=== PATIENT | female | born 1955 | race American Indian/Alaskan Native ===

== ENCOUNTER 2019-02-03 18:32 | Emergency (ER) | payer OTHER ==
--- NOTE | 2019-02-03 18:51 | Emergency Department Report ---
Blank Doc - Documentation Documentation: This is a 63-year-old female that presents with chest pain, sob, and dizziness with bilateral leg swelling. This initial assessment/diagnostic orders/clinical plan/treatment(s) is/are subject to change based on patient's health status, clinical progression and re- assessment by fellow clinical providers in the ED. Further treatment and workup at subsequent clinical providers discretion. Patient/guardians urged not to elope from the ED as their condition may be serious if not clinically assessed and managed. Initial orders include: 1- Patient sent to [facility] for further evaluation and treatment 2- cxr 3- EKG 4- labs
[2019-02-03 19:22] LABS: Hematocrit 43.6 % (30.3-42.9); Hemoglobin 14.1 gm/dl (10.1-14.3); Mean Corpuscular HGB Conc 32 % (30-34); Mean Corpuscular Volume 72 fl (79-97); Platelet Count 231 K/mm3 (140-440); Red Blood Count 6.07 M/mm3 (3.65-5.03); Red Cell Distribution Width 17.6 % (13.2-15.2)
[2019-02-03 19:34] LABS: INR 2.12 (0.87-1.13)
[2019-02-03 19:36] LABS: Partial Thromboplastin Time 40.7 Sec. (24.2-36.6)
[2019-02-03 19:46] LABS: Calcium 9.7 mg/dL (8.4-10.2)
--- NOTE | 2019-02-03 20:06 | Emergency Department Report ---
ED Neuro Deficit HPI - General Chief Complaint: Chest Pain Stated Complaint: CHEST PAIN/SOB Time Seen by Provider: 02/03/19 18:49 Source: patient Mode of arrival: Ambulatory Limitations: No Limitations - History of Present Illness Initial Comments: Mrs. Davalos is a 63 yo female with hx of diabetes mellitus, atrial fibrillation, heart failure on milrinone infusion pump who presents with confusion and unsteady gait. She has been ill for the past day. She has had global headache. Sudden onset of confusion approximately 4 pm today while at [facility] [employer]. She is followed by Dr. Galarza [employer] . Her integrity specialist Dr. Wolf. Mrs. Davalos is unable to give history. She is not able to remember events or names. Her two daughters provided history. Grand- daughter brought her to ED via private auto. Medications: Amiodarone 400 mg once a day Eliquis 5 mg BID Digoxin 125 mcg Insulin Glargine 20 units Insulin Lispro 6 units Metoprolol XL 50 mg daily Mexiletine 150 mg q8 hours Simvastatin 20 mg QHS Spironolactone 25 mg daily Torsemide 40 mg daily Time: 16:00 Location: altered, other (equilibrium seemed off) Presenting Symptoms: Present: Altered Mental Status History of same: No Place: other Severity: severe Improves With: none Worsens With: none On Anticoagulants: Yes (eliquis) Context: sudden onset Associated Symptoms: chest pain, other (gait instability) - Related Data Home Medications: Home Medications Medication Instructions Recorded Confirmed Last Taken Apixaban [Eliquis] 5 mg PO Q12H 02/03/19 02/03/19 Unknown Empagliflozin [Jardiance] 25 mg PO QAM 02/03/19 02/03/19 Unknown Insulin Glargine,Hum.rec.anlog 24 unit SQ QHS 02/03/19 02/03/19 Unknown [Basaglar Kwikpen U-100] Potassium Chloride [K-Dur] 40 meq PO DAILY 02/03/19 02/03/19 Unknown Spironolactone [Aldactone] 25 mg PO DAILY 02/03/19 02/03/19 Unknown Allergies/Adverse Reactions: Allergies Allergy/AdvReac Type Severity Reaction Status Date / Time No Known Allergies Allergy Verified 02/03/19 18:53 ED Review of Systems ROS: Stated complaint: CHEST PAIN/SOB Other details as noted in HPI Comment: Unobtainable due to pts medical conditions (patient is altered) ED Past Medical Hx - Past Medical History Previous Medical History?: Yes Hx Hypertension: Yes Hx Congestive Heart Failure: Yes Hx Diabetes: Yes Additional medical history: atrial fibrillation - Social History Smoking Status: Never Smoker Substance Use Type: None - Medications Home Medications: Home Medications Medication Instructions Recorded Confirmed Last Taken Type Apixaban [Eliquis] 5 mg PO Q12H 02/03/19 02/03/19 Unknown History Empagliflozin [Jardiance] 25 mg PO QAM 02/03/19 02/03/19 Unknown History Insulin Glargine,Hum.rec.anlog 24 unit SQ QHS 02/03/19 02/03/19 Unknown History [Basaglar Kwikpen U-100] Potassium Chloride [K-Dur] 40 meq PO DAILY 02/03/19 02/03/19 Unknown History Spironolactone [Aldactone] 25 mg PO DAILY 02/03/19 02/03/19 Unknown History ED Neuro Physical Exam - General Limitations: No Limitations General appearance: alert, other (appears dazed, frustrated) Suspected Stroke: No - Head Head exam: Present: atraumatic, normocephalic - Eye Eye exam: Absent: scleral icterus, conjunctival injection - ENT ENT exam: Present: normal orophraynx - Neck Neck exam: Present: normal inspection, full ROM. Absent: tenderness - Respiratory Respiratory exam: Absent: normal lung sounds bilaterally, respiratory distress, wheezes - Cardiovascular Cardiovascular Exam: Present: tachycardia, irregular rhythm, other (vascular access inserted right chest attached to infusion pump). Absent: diastolic murmur - GI/Abdominal GI/Abdominal exam: Present: soft. Absent: distended, tenderness, guarding, rebound - Extremities Exam Extremities exam: Present: pedal edema, other (4+ pitting edema lower extremities) - Neurological Exam Neurological exam: Present: alert, altered, other (oriented to name only) - NIHSS Assessment Interval: Baseline 1a. Level of Consciousness: arousable/minor stimuli 1b. LOC Questions: answers no questions correctly 1c. LOC Commands: performs tasks correctly 2. Best Gaze: normal 3. Visual: no visual loss 4. Facial Palsy: normal symmetrical movement 5b. Motor Arm Right: no drift 5a. Motor Arm Left: no drift 6a. Motor Leg Left: no drift 6b. Motor Leg Right: no drift 7. Limb Ataxia: absent 8. Sensory: normal 9. Best Language: mild/moderate aphasia 10. Dysarthria: normal 11. Extinction/Inattention: no abnormality Total Score: 4 Stroke Severity: Minor Stroke ED Course Vital Signs 02/03/19 02/03/19 18:49 19:30 Temperature 97.4 F L 97.5 F L Pulse Rate 83 88 Respiratory 20 23 Rate Blood Pressure 98/70 Blood Pressure 112/76 [Left] O2 Sat by Pulse 99 Oximetry - Lab Data Result diagrams: 02/03/19 19:09 02/03/19 19:09 Lab Results 02/03/19 02/03/19 02/03/19 Range/Units 19:09 19:09 19:09 WBC 5.3 (4.5-11.0) K/mm3 RBC 6.07 H (3.65-5.03) M/mm3 Hgb 14.1 (10.1-14.3) gm/dl Hct 43.6 H (30.3-42.9) % MCV 72 L (79-97) fl MCH 23 L (28-32) pg MCHC 32 (30-34) % RDW 17.6 H (13.2-15.2) % Plt Count 231 (140-440) K/mm3 Add Manual Diff Complete Total Counted 100 Seg Neuts % (Manual) 71.0 H (40.0-70.0) % Band Neutrophils % 0 % Lymphocytes % (Manual) 24.0 (13.4-35.0) % Reactive Lymphs % (Man) 0 % Monocytes % (Manual) 4.0 (0.0-7.3) % Eosinophils % (Manual) 1.0 (0.0-4.3) % Basophils % (Manual) 0 (0.0-1.8) % Metamyelocytes % 0 % Myelocytes % 0 % Promyelocytes % 0 % Blast Cells % 0 % Nucleated RBC % Not Reportable Seg Neutrophils # Man 3.8 (1.8-7.7) K/mm3 Band Neutrophils # 0.0 K/mm3 Lymphocytes # (Manual) 1.3 (1.2-5.4) K/mm3 Abs React Lymphs (Man) 0.0 K/mm3 Monocytes # (Manual) 0.2 (0.0-0.8) K/mm3 Eosinophils # (Manual) 0.1 (0.0-0.4) K/mm3 Basophils # (Manual) 0.0 (0.0-0.1) K/mm3 Metamyelocytes # 0.0 K/mm3 Myelocytes # 0.0 K/mm3 Promyelocytes # 0.0 K/mm3 Blast Cells # 0.0 K/mm3 WBC Morphology Not Reportable Hypersegmented Neuts Not Reportable Hyposegmented Neuts Not Reportable Hypogranular Neuts Not Reportable Smudge Cells Not Reportable Toxic Granulation Not Reportable Toxic Vacuolation Not Reportable Dohle Bodies Not Reportable Pelger-Huet Anomaly Not Reportable Solomon Rods Not Reportable Platelet Estimate Not Reportable Clumped Platelets Not Reportable Plt Clumps, EDTA Not Reportable Large Platelets Not Reportable Giant Platelets Not Reportable Platelet Satelliting Not Reportable Plt Morphology Comment Not Reportable RBC Morphology Not Reportable Dimorphic RBCs Not Reportable Polychromasia Not Reportable Hypochromasia 1+ Poikilocytosis Not Reportable Anisocytosis Not Reportable Microcytosis Not Reportable Macrocytosis Not Reportable Spherocytes Not Reportable Pappenheimer Bodies Not Reportable Sickle Cells Not Reportable Target Cells Not Reportable Tear Drop Cells Not Reportable Ovalocytes Not Reportable Helmet Cells Not Reportable [place] Bodies Not Reportable Ragland Rings Not Reportable [place] Cells Not Reportable Bite Cells Not Reportable Crenated Cell Not Reportable Elliptocytes Not Reportable Acanthocytes (Spur) Not Reportable Rouleaux Not Reportable Hemoglobin C Crystals Not Reportable Schistocytes Not Reportable Malaria parasites Not Reportable Rodolfo Bodies Not Reportable Hem Pathologist Commnt No PT 23.3 H (12.2-14.9) Sec. INR 2.12 H (0.87-1.13) APTT 40.7 H (24.2-36.6) Sec. Sodium 120 L (137-145) mmol/L Potassium 3.0 L (3.6-5.0) mmol/L Chloride 74.7 L (98-107) mmol/L Carbon Dioxide 25 (22-30) mmol/L Anion Gap 23 mmol/L BUN 26 H (7-17) mg/dL Creatinine 1.5 H (0.7-1.2) mg/dL Estimated GFR 35 ml/min BUN/Creatinine Ratio 17 % Glucose 137 H (65-100) mg/dL Calcium 9.7 (8.4-10.2) mg/dL Troponin T 0.027 (0.00-0.029) ng/mL NT-Pro-B Natriuret Pep 9418 H (0-900) pg/mL Digoxin (0.9-2.0) ng/mL 02/03/19 02/03/19 Range/Units 20:16 20:16 WBC (4.5-11.0) K/mm3 RBC (3.65-5.03) M/mm3 Hgb (10.1-14.3) gm/dl Hct (30.3-42.9) % MCV (79-97) fl MCH (28-32) pg MCHC (30-34) % RDW (13.2-15.2) % Plt Count (140-440) K/mm3 Add Manual Diff Total Counted Seg Neuts % (Manual) (40.0-70.0) % Band Neutrophils % % Lymphocytes % (Manual) (13.4-35.0) % Reactive Lymphs % (Man) % Monocytes % (Manual) (0.0-7.3) % Eosinophils % (Manual) (0.0-4.3) % Basophils % (Manual) (0.0-1.8) % Metamyelocytes % % Myelocytes % % Promyelocytes % % Blast Cells % % Nucleated RBC % Seg Neutrophils # Man (1.8-7.7) K/mm3 Band Neutrophils # K/mm3 Lymphocytes # (Manual) (1.2-5.4) K/mm3 Abs React Lymphs (Man) K/mm3 Monocytes # (Manual) (0.0-0.8) K/mm3 Eosinophils # (Manual) (0.0-0.4) K/mm3 Basophils # (Manual) (0.0-0.1) K/mm3 Metamyelocytes # K/mm3 Myelocytes # K/mm3 Promyelocytes # K/mm3 Blast Cells # K/mm3 WBC Morphology Hypersegmented Neuts Hyposegmented Neuts Hypogranular Neuts Smudge Cells Toxic Granulation Toxic Vacuolation Dohle Bodies Pelger-Huet Anomaly Solomon Rods Platelet Estimate Clumped Platelets Plt Clumps, EDTA Large Platelets Giant Platelets Platelet Satelliting Plt Morphology Comment RBC Morphology Dimorphic RBCs Polychromasia Hypochromasia Poikilocytosis Anisocytosis Microcytosis Macrocytosis Spherocytes Pappenheimer Bodies Sickle Cells Target Cells Tear Drop Cells Ovalocytes Helmet Cells [place] Bodies Ragland Rings Vicky Cells Bite Cells Crenated Cell Elliptocytes Acanthocytes (Spur) Rouleaux Hemoglobin C Crystals Schistocytes Malaria parasites Rodolfo Bodies Hem Pathologist Commnt PT 22.2 H (12.2-14.9) Sec. INR 1.99 H (0.87-1.13) APTT 37.9 H (24.2-36.6) Sec. Sodium (137-145) mmol/L Potassium (3.6-5.0) mmol/L Chloride (98-107) mmol/L Carbon Dioxide (22-30) mmol/L Anion Gap mmol/L BUN (7-17) mg/dL Creatinine (0.7-1.2) mg/dL Estimated GFR ml/min BUN/Creatinine Ratio % Glucose (65-100) mg/dL Calcium (8.4-10.2) mg/dL Troponin T (0.00-0.029) ng/mL NT-Pro-B Natriuret Pep (0-900) pg/mL Digoxin 1.8 (0.9-2.0) ng/mL Laboratory Results - last 24 hr 02/03/19 02/03/19 02/03/19 19:09 19:09 19:09 WBC 5.3 RBC 6.07 H Hgb 14.1 Hct 43.6 H MCV 72 L MCH 23 L MCHC 32 RDW 17.6 H Plt Count 231 PT 23.3 H INR 2.12 H APTT 40.7 H Sodium 120 L Potassium 3.0 L Chloride 74.7 L Carbon Dioxide 25 Anion Gap 23 BUN 26 H Creatinine 1.5 H Estimated GFR 35 BUN/Creatinine Ratio 17 Glucose 137 H Calcium 9.7 Troponin T 0.027 NT-Pro-B Natriuret Pep 9418 H 02/03/19 21:06 atrial fibrillation ventricular rate 100 bpm frequent PVCs prolonged QT nonspecific ST-T wave pattern frequent PVCs - Radiology Data Radiology results: report reviewed, image reviewed PCXR: cardiolomegaly, no infiltrate, mild vascular congestion CT head: diffuse atrophy - Medical Decision Making Mrs. Elllis presents with altered mental status, gait instablity with reported tremor significant leg edema. Severe hyponatremia noted in assocation with heart failure signals cardiac disease progression. dx: acute CHF, acute metabolic encephalopathy, hyponatremia, Code Stroke activated. I spoke with teleneurologist who agreed that findings did not constitute an acute CVA. He agree delirium is due to hyponatremia and acute CHF. Dr. Galarza, patient's personal heart failure specialist, accepted patient in transfer to [facility] telemetry floor. I, machine feeder raw stock and daughters agreed that Mrs. Davalos would best be served by her personal specialist in such a complicated case of heart failure with end stage disease. I discussed case with Dr. Galarza and transfer nurse at [facility] Critical Care Time: Yes Critical care time in (mins) excluding proc time.: 60 Critical care attestation.: If time is entered above; I have spent that time in minutes in the direct care of this critically ill patient, excluding procedure time. 60 minutes of critical care time excluding procedures were used in the care of patient. I was concerned for potential CVA or impending shock. Mrs. Lorenz required frequent reassessments. I updated family. I spoke with consultants involved in care of patient. I obtained hx from daughters. ED Disposition Clinical Impression: Acute metabolic encephalopathy, Acute hyponatremia, Acute heart failure, Atrial fibrillation Disposition: DC/TX-70 ANOTHER TYPE HLTHCARE Is pt being admited?: No Does the pt Need Aspirin: No Condition: Stable
--- NOTE | 2019-02-03 20:16 | XRay Report ---
CHEST 1 VIEW INDICATION: dyspnea. COMPARISON: None. FINDINGS: Support devices: ICD and right-sided central line are in satisfactory position. Negative for pneumoth orax. Heart: Moderate cardiomegaly. Lungs/Pleura: Mild vascular congestion. Negative for significant edema, effusion or infiltrate. Additional findings: None. IMPRESSION: 1. Moderate cardiomegaly. 2. Mild vascular congestion. Signer Name: Ok Leo MD Signed: 02/03/2019 8:11 PM Workstation Name: [id number]
[2019-02-03 20:20] LABS: Basophils % (Manual) 0 % (0.0-1.8); Hypochromasia 1+; Total Cells Counted 100
--- NOTE | 2019-02-03 20:43 | Cat Scan Report ---
CT head/brain wo con INDICATION: Stroke symptoms. TECHNIQUE: All CT scans at this location are performed using the following dose modulation technique: Automated exposure control. CONTRAST: None. COMPARISON: None available. FINDINGS: Mild symmetric distention of the ventricular system is typical of diffuse cerebral atrophy. Negative for mass, stroke or hemorrhage. Evaluation of the imaged bones demonstrates an air-fluid level at the left sphenoid sinus. IMPRESSION: 1. Diffuse cerebral atrophy. 2. Left sphenoid sinus disease. Signer Name: Ok Leo MD Signed: 02/03/2019 8:39 PM Workstation Name: [id number]
[2019-02-03 20:46] LABS: INR 1.99 (0.87-1.13)
[2019-02-03 20:47] LABS: Partial Thromboplastin Time 37.9 Sec. (24.2-36.6)
--- NOTE | 2019-02-03 21:30 | Emergency Department Report ---
ED Neuro Deficit HPI - General Chief Complaint: Chest Pain Stated Complaint: CHEST PAIN/SOB Time Seen by Provider: 02/03/19 18:49 Source: patient, family Mode of arrival: Ambulatory Limitations: No Limitations - History of Present Illness Initial Comments: [facility] TeleStroke Metrics: LKW: 1400 Door Time: 1832 [facility] Contacted: 9 [facility] at Bedside: 2003 NIHSS: 2010 Decision on Alteplase: Not to give as the patient is currently on Eliquis and has an elevated INR. In addition, her NIH stroke scale score is 1. Interventional Candidate: Not a candidate as her symptoms are not consistent with a large vessel proximal occlusion. Chief Complaint: Altered mental status HPI: Asked to see this patient in telemedicine consultation. Consultation was perfor med with assistance of ancillary / medical staff at bedside. Verbal consent to perform the examination with telemedicine was obtained. Patient agreed to proceed with the consultation. 63-year-old right-handed -[place] female who was brought to the emergency room by her 2 daughters for altered mental status, generalized shaking, gait ataxia, and headaches. Patient has a history of atrial fibrillation and is on Eliquis. She did take a dose this morning. Daughters have been concerned that over the last 2 weeks, the patient has not been eating as much. She also has been dealing with on and off headaches recently. The daughter had last spoken with the patient around 2 PM on the phone, and she sounded fine. She was able to go to her part-time job this [employer]. Then around 4 PM, the daughter got a phone call from their niece stating that something was wrong. Daughters noted the patient was off balance and was very shaky. She was delirious and had trouble remembering things. Patient cannot tell us exactly when her symptoms started. Daughters do not know exactly when her symptoms started as well. Upon my evaluation, the patient was able to tell me she is in the ER but was unable to tell me the year. She had no focal motor or sensory deficits. She was complaining of severe lightheadedness. Her blood pressure was low in the 90s. PMH: Hypertension, diabetes mellitus, CHF, and atrial fibrillation on Eliquis SOC: Negative x3. Patient lives with family. FMH: Sister with a stroke before. ROS: 13 point review of systems were reviewed with the patient, and are all negative with the exception of the aforementioned in the history of present illness. VS: Temperature is 97.4 F, pulse 83, respiration 20, blood pressure 98/70 Exam: Patient is in no apparent distress. Patient appears as stated age. No obvious acute respiratory or cardiac distress. Patient is well groomed and well-nourished. 1a- LOC: Keenly responsive - 0 1b- LOC questions: Answers 1 question correctly - 1 1c- LOC commands- Performs both tasks correctly- 0 2- Gaze: Normal; no gaze paresis or gaze deviation - 0 3- Visual Garcia: normal, no Visual field deficit - 0 4- Facial movements: no facial palsy - 0 5- Upper limb motor - no drift - 0 6- Lower limb motor - no drift - 0 7- Limb Coordination: absent ataxia - 0 8- Sensory: no sensory loss - 0 9- Language - No aphasia - 0 10- Speech - No dysarthria -0 11- Neglect / Extinction - none found - 0 NIHSS score: 1 Diagnostic Data: CT of the head showed no acute intracranial process WBC 5.3, hemoglobin 14.1, platelets 231, INR 2.12, cardiac BNP 9418, sodium 120, potassium 3, BUN 26, creatinine 1.5, blood glucose 137 Medical Data Reviewed: 1.Data?reviewed include clinical labs, radiology,?and medical tests; 2.Tests?results discussed w/performing or interpreting physician; 3.Obtaining/reviewing old medical records; 4.Obtaining?case history from another source; 5.Independent?review of image, tracing, or specimen. Medical Decision Making: - Extensive number of diagnosis or management options are considered below. - Extensive amount of complex data reviewed. - High risk of complication and/or morbidity or mortality are associated with differential diagnostic considerations below. - There may be?uncertain?outcome and increased probability of prolonged functional impairment or high probability of severe prolonged functional impairment associated with some of these differential diagnosis. Assessment: 1. Acute metabolic encephalopathy 2. Hyponatremia 3. Possible acute CHF exacerbation 4. Hypertension 5. Diabetes mellitus 6. Atrial fibrillation on Eliquis 7. Lightheadedness/presyncope due to hypotension Recommendations: Patient can be admitted to the hospital for further work-up of her symptoms. Metabolic, infectious, and cardiac work-up per primary team. Can check an MRI brain without contrast to rule out any acute intracranial process. Continue supportive care. Plan of care was discussed with the patient and her family. Thank you for allowing [facility] to participate in the care of your patient. Please call me, Dr. Lopez, with any questions at [phone]. Case discussed with the ER staff and Dr. Baker. Critical Care notation: I was called to see this critical patient emergently. I personally evaluated this critical patient for acute stroke evaluation, and determining their eligibility for IV Alteplase and interventional therapies. I have spent approximately 9 minutes with the patient, including time at bedside, time discussing the case with other physicians, reviewing plan of care, and time independently reviewing the records and scans. Location: altered, other (equilibrium seemed off) History of same: No Place: other Severity: severe Improves With: none Worsens With: none On Anticoagulants: Yes (eliquis) - Related Data Home Medications: Home Medications Medication Instructions Recorded Confirmed Last Taken Apixaban [Eliquis] 5 mg PO Q12H 02/03/19 02/03/19 Unknown Empagliflozin [Jardiance] 25 mg PO QAM 02/03/19 02/03/19 Unknown Insulin Glargine,Hum.rec.anlog 24 unit SQ QHS 02/03/19 02/03/19 Unknown [Basaglar Kwikpen U-100] Potassium Chloride [K-Dur] 40 meq PO DAILY 02/03/19 02/03/19 Unknown Spironolactone [Aldactone] 25 mg PO DAILY 02/03/19 02/03/19 Unknown Allergies/Adverse Reactions: Allergies Allergy/AdvReac Type Severity Reaction Status Date / Time No Known Allergies Allergy Verified 02/03/19 18:53 ED Review of Systems ROS: Stated complaint: CHEST PAIN/SOB Other details as noted in HPI ED Past Medical Hx - Past Medical History Previous Medical History?: Yes Hx Hypertension: Yes Hx Congestive Heart Failure: Yes Hx Diabetes: Yes Additional medical history: atrial fibrillation - Social History Smoking Status: Never Smoker Substance Use Type: None - Medications Home Medications: Home Medications Medication Instructions Recorded Confirmed Last Taken Type Apixaban [Eliquis] 5 mg PO Q12H 02/03/19 02/03/19 Unknown History Empagliflozin [Jardiance] 25 mg PO QAM 02/03/19 02/03/19 Unknown History Insulin Glargine,Hum.rec.anlog 24 unit SQ QHS 02/03/19 02/03/19 Unknown History [Abril Menjivar U-100] Potassium Chloride [K-Dur] 40 meq PO DAILY 02/03/19 02/03/19 Unknown History Spironolactone [Aldactone] 25 mg PO DAILY 02/03/19 02/03/19 Unknown History ED Neuro Physical Exam - General Limitations: No Limitations General appearance: alert, other (appears dazed, frustrated) Suspected Stroke: No ED Course Vital Signs 02/03/19 02/03/19 02/03/19 18:49 19:30 21:00 Temperature 97.4 F L 97.5 F L Pulse Rate 83 88 98 H Respiratory 20 23 15 Rate Blood Pressure 98/70 Blood Pressure 112/76 97/75 [Left] O2 Sat by Pulse 99 98 Oximetry - Lab Data Result diagrams: 02/03/19 19:09 02/03/19 19:09 Lab Results 02/03/19 02/03/19 02/03/19 Range/Units 19:09 19:09 19:09 WBC 5.3 (4.5-11.0) K/mm3 RBC 6.07 H (3.65-5.03) M/mm3 Hgb 14.1 (10.1-14.3) gm/dl Hct 43.6 H (30.3-42.9) % MCV 72 L (79-97) fl MCH 23 L (28-32) pg MCHC 32 (30-34) % RDW 17.6 H (13.2-15.2) % Plt Count 231 (140-440) K/mm3 Add Manual Diff Complete Total Counted 100 Seg Neuts % (Manual) 71.0 H (40.0-70.0) % Band Neutrophils % 0 % Lymphocytes % (Manual) 24.0 (13.4-35.0) % Reactive Lymphs % (Man) 0 % Monocytes % (Manual) 4.0 (0.0-7.3) % Eosinophils % (Manual) 1.0 (0.0-4.3) % Basophils % (Manual) 0 (0.0-1.8) % Metamyelocytes % 0 % Myelocytes % 0 % Promyelocytes % 0 % Blast Cells % 0 % Nucleated RBC % Not Reportable Seg Neutrophils # Man 3.8 (1.8-7.7) K/mm3 Band Neutrophils # 0.0 K/mm3 Lymphocytes # (Manual) 1.3 (1.2-5.4) K/mm3 Abs React Lymphs (Man) 0.0 K/mm3 Monocytes # (Manual) 0.2 (0.0-0.8) K/mm3 Eosinophils # (Manual) 0.1 (0.0-0.4) K/mm3 Basophils # (Manual) 0.0 (0.0-0.1) K/mm3 Metamyelocytes # 0.0 K/mm3 Myelocytes # 0.0 K/mm3 Promyelocytes # 0.0 K/mm3 Blast Cells # 0.0 K/mm3 WBC Morphology Not Reportable Hypersegmented Neuts Not Reportable Hyposegmented Neuts Not Reportable Hypogranular Neuts Not Reportable Smudge Cells Not Reportable Toxic Granulation Not Reportable Toxic Vacuolation Not Reportable Dohle Bodies Not Reportable Pelger-Huet Anomaly Not Reportable Solomon Rods Not Reportable Platelet Estimate Not Reportable Clumped Platelets Not Reportable Plt Clumps, EDTA Not Reportable Large Platelets Not Reportable Giant Platelets Not Reportable Platelet Satelliting Not Reportable Plt Morphology Comment Not Reportable RBC Morphology Not Reportable Dimorphic RBCs Not Reportable Polychromasia Not Reportable Hypochromasia 1+ Poikilocytosis Not Reportable Anisocytosis Not Reportable Microcytosis Not Reportable Macrocytosis Not Reportable Spherocytes Not Reportable Pappenheimer Bodies Not Reportable Sickle Cells Not Reportable Target Cells Not Reportable Tear Drop Cells Not Reportable Ovalocytes Not Reportable Helmet Cells Not Reportable Montgomery-Jarrell Bodies Not Reportable [place] Rings Not Reportable Vicky Cells Not Reportable Bite Cells Not Reportable Crenated Cell Not Reportable Elliptocytes Not Reportable Acanthocytes (Spur) Not Reportable Rouleaux Not Reportable Hemoglobin C Crystals Not Reportable Schistocytes Not Reportable Malaria parasites Not Reportable Rodolfo Bodies Not Reportable Hem Pathologist Commnt No PT 23.3 H (12.2-14.9) Sec. INR 2.12 H (0.87-1.13) APTT 40.7 H (24.2-36.6) Sec. Sodium 120 L (137-145) mmol/L Potassium 3.0 L (3.6-5.0) mmol/L Chloride 74.7 L (98-107) mmol/L Carbon Dioxide 25 (22-30) mmol/L Anion Gap 23 mmol/L BUN 26 H (7-17) mg/dL Creatinine 1.5 H (0.7-1.2) mg/dL Estimated GFR 35 ml/min BUN/Creatinine Ratio 17 % Glucose 137 H (65-100) mg/dL Calcium 9.7 (8.4-10.2) mg/dL Troponin T 0.027 (0.00-0.029) ng/mL NT-Pro-B Natriuret Pep 9418 H (0-900) pg/mL Digoxin (0.9-2.0) ng/mL 02/03/19 02/03/19 02/03/19 Range/Units 20:16 20:16 20:16 WBC (4.5-11.0) K/mm3 RBC (3.65-5.03) M/mm3 Hgb (10.1-14.3) gm/dl Hct (30.3-42.9) % MCV (79-97) fl MCH (28-32) pg MCHC (30-34) % RDW (13.2-15.2) % Plt Count (140-440) K/mm3 Add Manual Diff Total Counted Seg Neuts % (Manual) (40.0-70.0) % Band Neutrophils % % Lymphocytes % (Manual) (13.4-35.0) % Reactive Lymphs % (Man) % Monocytes % (Manual) (0.0-7.3) % Eosinophils % (Manual) (0.0-4.3) % Basophils % (Manual) (0.0-1.8) % Metamyelocytes % % Myelocytes % % Promyelocytes % % Blast Cells % % Nucleated RBC % Seg Neutrophils # Man (1.8-7.7) K/mm3 Band Neutrophils # K/mm3 Lymphocytes # (Manual) (1.2-5.4) K/mm3 Abs React Lymphs (Man) K/mm3 Monocytes # (Manual) (0.0-0.8) K/mm3 Eosinophils # (Manual) (0.0-0.4) K/mm3 Basophils # (Manual) (0.0-0.1) K/mm3 Metamyelocytes # K/mm3 Myelocytes # K/mm3 Promyelocytes # K/mm3 Blast Cells # K/mm3 WBC Morphology Hypersegmented Neuts Hyposegmented Neuts Hypogranular Neuts Smudge Cells Toxic Granulation Toxic Vacuolation Dohle Bodies Pelger-Huet Anomaly Solomon Rods Platelet Estimate Clumped Platelets Plt Clumps, EDTA Large Platelets Giant Platelets Platelet Satelliting Plt Morphology Comment RBC Morphology Dimorphic RBCs Polychromasia Hypochromasia Poikilocytosis Anisocytosis Microcytosis Macrocytosis Spherocytes Pappenheimer Bodies Sickle Cells Target Cells Tear Drop Cells Ovalocytes Helmet Cells Montgomery-Jarrell Bodies [place] Rings Era Cells Bite Cells Crenated Cell Elliptocytes Acanthocytes (Spur) Rouleaux Hemoglobin C Crystals Schistocytes Malaria parasites Rodolfo Bodies Hem Pathologist Commnt PT 22.2 H (12.2-14.9) Sec. INR 1.99 H (0.87-1.13) APTT 37.9 H (24.2-36.6) Sec. Sodium (137-145) mmol/L Potassium (3.6-5.0) mmol/L Chloride (98-107) mmol/L Carbon Dioxide (22-30) mmol/L Anion Gap mmol/L BUN (7-17) mg/dL Creatinine (0.7-1.2) mg/dL Estimated GFR ml/min BUN/Creatinine Ratio % Glucose (65-100) mg/dL Calcium (8.4-10.2) mg/dL Troponin T < 0.010 (0.00-0.029) ng/mL NT-Pro-B Natriuret Pep (0-900) pg/mL Digoxin 1.8 (0.9-2.0) ng/mL Critical care attestation.: If time is entered above; I have spent that time in minutes in the direct care of this critically ill patient, excluding procedure time. ED Disposition Clinical Impression: Acute metabolic encephalopathy Disposition: OP ADMIT IP TO THIS HOSP Is pt being admited?: Yes Does the pt Need Aspirin: No Condition: Stable Referrals: MELODY RUIZ MD [Primary Care Provider] - 3-5 Days
[2019-02-04 01:14] VITALS: BP 97/56
== END 2019-02-04 02:10 | disposition admitted as inpatient to this hospital (09) ==
LOC: ED 18:32
DX: G93.41 Metabolic encephalopathy (principal); I11.0 Hypertensive heart disease with heart failure; I50.9 Heart failure, unspecified; E11.9 Type 2 diabetes mellitus without complications; I48.91 Unspecified atrial fibrillation; Z79.899 Other long term (current) drug therapy
CPT/HCPCS: 36415; 70450; 71045; 80048; 80162; 82962; 83880; 84484; 85007; 85025; 85610; 85730; 93005; 93010; 99291